=== PATIENT | female | born 1950 | race Caucasian/White ===

== ENCOUNTER 2020-03-02 08:47 | Emergency (ER) | payer BC, OTHER ==
[~2020-03-02] VITALS: Ht 162.6 cm; Wt 64.9 kg
[~2020-03-02 08:47] MED LIST: ATENPOW10 XX; ATO40T OR; CARI-277 OR; HYDR-1421 OR
[2020-03-02 09:00] VITALS: BP 162/89
[2020-03-02] MEDS ORDERED: ACETAMINOPHEN/CODEINE#3 (300/30mg) TAB PO ONE (09:15)
[2020-03-02] MEDS ORDERED: TETANUS-DIPTH-ACEL PERTUSSIS 0.5ML SYR Tdap IM ONE (09:15)
[2020-03-02] MEDS ORDERED: LIDOCAINE 1% HCL (LOCAL ANESTH.) INJ 20ML MDV IJ ONE (09:15)
[2020-03-02] MEDS ORDERED: cefTRIAXone SOD 1,000 MG VL IM ONE (10:00)
== END 2020-03-02 10:25 | disposition home or self-care (01) ==
LOC: ER 08:47
DX: S90.451A Superficial foreign body, right great toe, initial encounter (principal); I10 Essential (primary) hypertension; E78.5 Hyperlipidemia, unspecified; Z90.89 Acquired absence of other organs; Z79.899 Other long term (current) drug therapy; W45.8XXA Other foreign body or object entering through skin, initial encounter; Y93.89 Activity, other specified; Y92.89 Other specified places as the place of occurrence of the external cause; Y99.8 Other external cause status
CPT/HCPCS: 64450; 73660; 90471; 90715; 96372; 99284; J0696; J2001

== ENCOUNTER 2022-12-21 18:36 | Emergency (ER) | payer BC ==
[~2022-12-21] VITALS: Ht 162.6 cm; Wt 54.5 kg
[2022-12-21] MEDS ORDERED: EPINEPHrine HCL 1 MG/1 ML AMP IM ONE ×2 (18:45→19:05)
[2022-12-21] MEDS ORDERED: diphenhdrAMINE HCL 50 MG/1 ML VL ONE (18:50)
[2022-12-21] MEDS ORDERED: DexAMETHasone SOD PHOS 10MG/1ML VIAL INJ IV ONE (18:50)
[2022-12-21] MEDS ORDERED: diphenhdrAMINE HCL 50 MG/1 ML VL IV ONE (18:50)
[2022-12-21] MEDS ORDERED: DexAMETHasone SOD PHOS 10MG/1ML VIAL INJ ONE (18:50)
[2022-12-21] MEDS ORDERED: FAMOTIDINE (10MG/ML) 2ML VL IV ONE ×3 (18:50→18:51)
[2022-12-21] MEDS ORDERED: EPINEPHrine HCL 0.5 ML NEB NEB ONE (19:15)
[2022-12-21] MEDS ORDERED: hydrALAZINE HCL 20 MG/ML VL IV PRN (21:15)
[2022-12-21] MEDS ORDERED: HYDROcodone-ACET 5/325MG TAB PO PRN (21:15)
[2022-12-21] MEDS ORDERED: diphenhdrAMINE HCL 50 MG/1 ML VL IV PRN (21:15)
[2022-12-21] MEDS ORDERED: ACETAMINOPHEN 325 MG TAB PO PRN (21:15)
[2022-12-21] MEDS ORDERED: DOCUSATE SOD 100 MG CAP PO PRN (21:15)
[2022-12-21] MEDS ORDERED: ONDANSETRON HCL 4 MG/2 ML VIAL IV PRN (21:15)
[2022-12-21 21:18] LABS: Albumin 3.5 g/dL (3.4-5.0); Calcium 8.4 mg/dL (8.5-10.1)
[2022-12-21 21:21] LABS: BUN/Creatinine Ratio 32.4; Bilirubin, Total 0.3 mg/dL (0.2-1.0); Total Protein 6.8 g/dL (6.4-8.2)
[2022-12-21 21:41] LABS: Potassium 2.9 mmol/L (3.5-5.1)
[2022-12-21 21:44] LABS: Basophils # (auto) 0.1 10 ^3/uL (0-0.2); Basophils % (auto) 0.3 % (0.0-2.0); Eosinophils # (auto) 0.1 10 ^3/uL (0-0.8); Eosinophils % (auto) 0.7 % (0.0-7.0); Hematocrit 39.1 % (36.0-46.0); Hemoglobin 13.1 g/dL (12.2-16.2); Mean Corpuscular Hemoglobin 30.2 pg (28.0-32.0); Mean Corpuscular Hgb Conc. 33.4 g/dL (32.0-36.0); Mean Corpuscular Volume 90.5 fL (80.0-100.0); Monocytes # (auto) 0.5 10 ^3/uL (0-1.3); Monocytes % (auto) 3.1 % (0.0-12.0); Neutrophils # (auto) 14.6 10 ^3/uL (1.6-8.6); Neutrophils % (auto) 89.9 % (37.0-80.0); Nucleated Red Blood Cells % 0.2 %; Red Blood Cells 4.32 10^6/uL (4.0-5.20); Red Cell Distribution Width 13.8 % (11.8-14.3); White Blood Cell 16.3 10^3/uL (4.4-10.8)
[2022-12-21] MEDS ORDERED: SODIUM CHLOR 0.9% PF (SALINE LOCK) 10ML VIAL/SYR IV SCH (22:00)
[2022-12-21] MEDS ORDERED: FAMOTIDINE (10MG/ML) 2ML VL IV SCH (22:00)
[2022-12-21] MEDS ORDERED: POTASSIUM CHL 20MEQ/100ML 100 ML IV ONE (22:00)
[2022-12-21] MEDS ORDERED: ALBUTEROL SULF HFA 90MCG INH 200DOSE IN SCH (22:00)
[2022-12-21] MEDS ORDERED: ATORVASTATIN 20 MG TAB PO SCH (22:00)
[2022-12-21 23:17] LABS: Urine Bacteria FEW /hpf (None Seen); Urine Blood Negative /uL (Negative); Urine Mucus FEW (None Seen); Urine Specific Gravity 1.025 (1.001-1.035); Urine WBC 4 /hpf (0 - 5)
[2022-12-21] MEDS ORDERED: MORPHINE SULFATE INJ 2 MG/ml SYRG IV PRN (23:30)
[2022-12-21] MEDS ORDERED: NITROGLYCERIN 0.4 MG SL TAB SL PRN (23:30)
[2022-12-22] VITALS: BP 118/67
[2022-12-22] MEDS ORDERED: DexAMETHasone SOD PHOS 4 MG/1ML SDV INJ IV SCH
[2022-12-22] MEDS ORDERED: POTASSIUM CHL 20 Meq TABLET PO ONE (00:45)
[2022-12-22] MEDS ORDERED: levoFLOXacin 250 MG TAB PO ONE (01:00)
[2022-12-22] MEDS ORDERED: POTA10TA32 PO (01:05)
[2022-12-22] MEDS ORDERED: METH4PAK PO (01:05)
[2022-12-22] MEDS ORDERED: LEVO500T31 PO (01:05)
[2022-12-22] MEDS ORDERED: MAGNESIUM SULFATE 1GM/100ML 100 ML IV ONE ×2 (01:22→02:19)
[2022-12-22] MEDS: MAGNESIUM SULFATE 1GM/100ML 100 ML IV SCH ×2 (01:25→02:24)
== END 2022-12-22 03:55 | disposition home or self-care (01) ==
LOC: ER 18:36 → UNDOADMIN 23:31 → TELE 23:31 → ER 23:49
DX: T78.2XXA Anaphylactic shock, unspecified, initial encounter (principal); E78.5 Hyperlipidemia, unspecified; I10 Essential (primary) hypertension
CPT/HCPCS: 36415; 80053; 81001; 85025; 94640; 96361; 96365; 96372; 96375; 96376; 99285; J1100; J1200; J3475; J3480; J3490; J7030